=== PATIENT | female | born 1940 ===

== ENCOUNTER 2021-01-21 19:46 | Outpatient (NON) | payer MEDICARE, SELFPAY ==
[2021-01-21 20:24] LABS: Hematocrit 37.6 % (35.0-42.0); Hemoglobin 11.3 g/dL (11.7-13.8); Immature Platelet Fraction Pct 4.3 % (1.0-7.0); Mean Corpuscular HGB Conc 30.1 g/dL (32.0-36.0); Mean Corpuscular Hemoglobin 30.5 pg (27.0-31.0); Mean Corpuscular Volume 101.3 fL (78.0-102.0); Mean Platelet Volume 10.6 fl (9.2-11.8); Platelet Count Result 143 K/mm3 (150-420); Red Blood Count 3.71 M/mm3 (4.20-5.40); Red Cell Distribution Width 12.1 % (11.6-14.4); White Blood Count 7.2 K/mm3 (4.8-10.8)
[2021-01-21 20:36] LABS: Blood Urea Nitrogen 24 mg/dL (7-18); Calcium 9.2 mg/dL (8.5-10.1); Chloride 96 mmol/L (98-108); Estimated Glomerular Filt Rate > 60; Glucose 110 mg/dL (70-99); Osmolality Calculated 297 mOsm/kg (285-295); Potassium 4.7 mmol/L (3.5-5.1); Sodium 141 mmol/L (136-145)
[2021-01-21 20:49] LABS: Carbon Dioxide > 45 mmol/L (21-32)
== END 2021-01-21 19:47 | disposition home or self-care (01) ==
LOC: CHSLAB 19:51
DX: J96.11 Chronic respiratory failure with hypoxia (principal); J96.12 Chronic respiratory failure with hypercapnia; I10 Essential (primary) hypertension
CPT/HCPCS: 36415; 80048; 85027; 85055